=== PATIENT | female | born 1985 | race African-American/Black ===

== ENCOUNTER 2018-12-17 07:35 | Emergency (ER) | payer BC, OTHER ==
[2018-12-17 07:48] VITALS: BP 150/60; PULSE 79; TEMP 97.5; BMI 44.1
--- NOTE | 2018-12-17 08:37 | PDOC ---
History of Present Illness - General Chief Complaint: Pain, Acute Stated Complaint: ARM PAIN Time Seen by Provider: 12/17/18 08:16 History Source: Patient Exam Limitations: No Limitations - History of Present Illness Initial Comments: 12/17/18 08:36 33 year old female presents with medical history of HTN reports pain in right elbow since awakening . STates pain with movement, denies fall or other injury. Took aspirin with no relief of symptoms Occurred: reports: other (3 days) Upper Extremity Pain Location: right: elbow Method of Injury: reports: unknown Modifying Factors: improves with: immobilization, pain medication Extremity Pain Location - Extremity Pain Location Extremity Pain Locations: right: elbow Past History - Travel Traveled outside of the country in the last 30 days: No - Past Medical History Allergies/Adverse Reactions: Allergies Allergy/AdvReac Type Severity Reaction Status Date / Time No Known Drug Allergies Allergy Verified 12/20/13 19:42 Home Medications: Ambulatory Orders Vitamins (Sjr) - 1 tab PO DAILY 12/20/13 Acetaminophen [Tylenol .Regular Strength -] 650 mg PO Q4H PRN #1 tablet Ibuprofen [Motrin -] 600 mg PO Q4H PRN #1 tablet 12/23/13 Sennosides/Docusate Sodium [Pericolace -] 2 each PO HS PRN #1 tablet 12/23/13 Naproxen [Naprosyn] 500 mg PO TID #30 tablet 12/17/18 Asthma: No Cancer: No Cardiac Disorders: No COPD: No Diabetes: No HTN: No Seizures: No Thyroid Disease: No - Immunization History Immunization Up to Date: Yes - Suicide/Smoking/Psychosocial Hx Smoking History: Never smoked Hx Alcohol Use: No Drug/Substance Use Hx: No Hx Substance Use Treatment: No Review of Systems - Review of Systems Able to Perform ROS?: Yes Is the patient limited [place] proficient: No Constitutional: No: Chills, Fever, Weakness HEENTM: No: Throat Pain, Throat Swelling, Difficulty Swallowing Respiratory: No: Cough, Wheezing Musculoskeletal: Yes: Joint Pain, Joint Swelling. No: Back Pain, Muscle Weakness, Neck Pain Integumentary: No: Erythema Neurological: No: Paresthesia *Physical Exam - Vital Signs Last Vital Signs Temp Pulse Resp BP Pulse Ox 97.5 F L 79 16 150/60 97 12/17/18 07:44 12/17/18 07:44 12/17/18 07:44 12/17/18 07:44 12/17/18 07:44 - Physical Exam General Appearance: Yes: Nourished, Appropriately Dressed HEENT: positive: Pharynx Normal Neck: positive: Supple, Lymphadenopathy (R), Lymphadenopathy (L) Respiratory/Chest: positive: Lungs Clear Cardiovascular: positive: Regular Rhythm, Regular Rate Extremity: positive: Normal Inspection, Normal Range of Motion, Other (right elbow with tenderness and swelling ) Neurologic: positive: Fully Oriented Moderate Sedation - Procedure Monitoring Vital Signs: Procedure Monitoring Vital Signs Temperature 97.5 F L 12/17/18 07:44 Pulse Rate 79 12/17/18 07:44 Respiratory Rate 16 12/17/18 07:44 Blood Pressure 150/60 12/17/18 07:44 O2 Sat by Pulse Oximetry (%) 97 12/17/18 07:44 Medical Decision Making - Medical Decision Making 12/17/18 08:35 33 year old female with medical history of htn presents with pain to right elbow x 3 days Plan: xray of right elbow 12/17/18 09:26 xray negative for acute fracture *DC/Admit/Observation/Transfer Diagnosis at time of Disposition: Tendinitis of elbow - Discharge Dispostion Disposition: HOME Condition at time of disposition: Good - Prescriptions Prescriptions: Naproxen [Naprosyn] 500 mg PO TID #30 tablet - Referrals Referrals: Jose Alfredo Egan MD [Primary Care Provider] - Ariel Copeland MD [Staff Physician] - 3 days - Patient Instructions Additional Instructions: Please apply ice compress for 20 minutes 3 to 4 times daily Call ortho for follow up appointment. - Post Discharge Activity Forms/Work/School Notes: Back to Work
[2018-12-17] MEDS ORDERED: NAPROXEN 500 MG TABLET (FP) PO ONE (08:55)
[2018-12-17] MEDS ORDERED: NAPROXEN 500 MG TABLET (FP) ONE (09:10)
== END 2018-12-17 09:41 | disposition home or self-care (01) ==
LOC: JER 07:35 → JERFT 07:35
DX: M77.8 Other enthesopathies, not elsewhere classified (principal)
CPT/HCPCS: 73070-TC-RT-FY; 99281-25

== ENCOUNTER 2020-11-24 11:51 | Emergency (ER) | payer BC ==
[2020-11-24 12:05] VITALS: BP 169/93; TEMP 98; BMI 47.9
[2020-11-24] MEDS ORDERED: LORATADINE 10 MG TABLET PO ONE (12:20)
[2020-11-24] MEDS ORDERED: DEXAMETHASONE SOD PHOSPHATE 10 MG/1 ML VIAL IM ONE (12:21)
[2020-11-24] MEDS ORDERED: DEXAMETHASONE SOD PHOSPHATE 10 MG/1 ML VIAL ONE (12:23)
[2020-11-24] MEDS ORDERED: LORATADINE 10 MG TABLET ONE (12:23)
[2020-11-24 13:22] VITALS: PULSE 99
== END 2020-11-24 13:29 | disposition home or self-care (01) ==
LOC: JERFT 11:51
PROC: 3E023GC Introduction of Other Therapeutic Substance into Muscle, Percutaneous Approach (ICD-10-PCS; principal; 2020-11-24)
DX: T78.40XA Allergy, unspecified, initial encounter (principal)
CPT/HCPCS: 99284-25; J1100

== ENCOUNTER 2020-11-25 23:29 | Emergency (ER) | payer BC ==
[2020-11-25 23:44] VITALS: BP 114/75; TEMP 98.6; BMI 47.9
[2020-11-25] MEDS ORDERED: FAMOTIDINE 20 MG/50 ML IVPB 20 MG/50 ML MG IVPB ONE (23:51)
[2020-11-25] MEDS ORDERED: LACTATED RINGERS SOLUTION 1000 ML INFUS.BAG IV ONE (23:51)
[2020-11-26] MEDS ORDERED: FAMOTIDINE 20 MG/50 ML IVPB 20 MG/50 ML MG IVPB ONE (00:10)
[2020-11-26] MEDS ORDERED: methylPREDNISolone NA SUCC 125 MG/2 ML VIAL IVPB ONE (01:30)
[2020-11-26] MEDS ORDERED: methylPREDNISolone NA SUCC 125 MG/2 ML VIAL ONE (01:40)
[2020-11-26 02:45] VITALS: PULSE 86
== END 2020-11-26 04:38 | disposition home or self-care (01) ==
LOC: JER 23:29
PROC: 3E033GC Introduction of Other Therapeutic Substance into Peripheral Vein, Percutaneous Approach (ICD-10-PCS; principal; 2020-11-25)
PROC: 3E033GC Introduction of Other Therapeutic Substance into Peripheral Vein, Percutaneous Approach (ICD-10-PCS; 2020-11-25)
PROC: 3E033GC Introduction of Other Therapeutic Substance into Peripheral Vein, Percutaneous Approach (ICD-10-PCS; 2020-11-25)
DX: T78.40XA Allergy, unspecified, initial encounter (principal)
CPT/HCPCS: 99284-25